=== PATIENT | female | born 1940 ===

== ENCOUNTER 2023-04-30 17:18 | Emergency (ER) | payer OTHER, MEDICAID, SELFPAY ==
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
--- NOTE | ~2023-04-30 | CT_ITS ---
EXAMINATION: CT CERVICAL SPINE WITHOUT CONTRAST CLINICAL INFORMATION: Neck pain COMPARISON: None available. TECHNIQUE: CT scan of cervical spine with reconstruction imaging performed at the acquisition workstation. This CT examination was performed using dose optimization techniques as appropriate, variously including the following: *Automated exposure control *Adjustment of mA and/or kV according to patient size (this includes techniques or standardized protocols for targeted exams where dose is matched to indication/reason for exam; i.e. extremities or head) *Use of iterative reconstruction technique DLP: 378 mGy-cm FINDINGS: There is advanced multilevel spondylosis of the cervical spine. There is multilevel degenerative disc changes with disc space narrowing moderate to severe at the C6-C7 level with disc space narrowing endplate osteophytes and vacuum disc phenomenon. Bilateral multilevel severe facet arthrosis also present involving almost all levels. These degenerative changes result in mild grade 1 anterolisthesis of C3 on C4 and C4 on C5. There is no fracture. There is no bone lesion. The surrounding soft tissues are unremarkable. CT/CT cervical spine wo IV con IMPRESSION: Advanced cervical spondylosis. No acute abnormality Fleischner guidelines were followed.
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
[2023-04-30 17:52] VITALS: BP 146/79; BP 150/108; PULSE 81; PULSE 99; RESP 14; TEMP 36.7; O2SAT 95; O2SAT 97; BMI 32.8
[2023-04-30 18:41] LABS: MANUAL DIFF FLAG NO
[2023-04-30 18:49] LABS: Basophils Percent Auto 0.4 % (0-2); Eosinophils Absolute Auto 0.3 X10*3/uL (0.0-0.4); Eosinophils Percent Auto 4.3 % (0-4); Hemoglobin 14.1 g/dl (12.0-16.0); Imm Gran Abs Auto 0.02 X10*3/uL (0.00-0.03); Imm Gran Pct Auto 0.3 % (0.0-0.4); Lymphocytes Absolute Auto 1.4 X10*3/uL (1.2-4.9); Lymphocytes Percent Auto 20.2 % (20-40); Mean Corpuscular HGB Conc 34.4 g/dl (31.0-35.0); Mean Corpuscular Hemoglobin 31.7 pg (27.0-33.0); Mean Corpuscular Volume 92.1 fL (80.0-98.0); Mean Platelet Volume 11.1 fL (9.4-12.3); Monocytes Absolute Auto 0.5 X10*3/uL (0.1-1.2); Monocytes Percent Auto 6.9 % (2-11); Neutrophils Absolute Auto 4.6 x10*3/uL (2.0-8.3); Neutrophils Percent Auto 67.9 % (45-73); Platelet Count 240 X10*3/uL (160-400); Red Blood Count 4.45 X10*6/uL (4.20-5.50); Red Cell Distribution Width 12.8 % (11.0-16.0); White Blood Count 6.8 X10*3/uL (4.8-10.8)
[2023-04-30] MEDS: Acetaminophen 325 MG TABLET 650 MG PO (18:52)
[2023-04-30 19:01] LABS: Prothrombin Time 11.1 SEC (10.0-13.1)
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
[2023-04-30 19:39] LABS: Alanine Aminotransferase 11 U/L (0-31); Albumin Level 3.9 g/dL (3.5-5.0); Alkaline Phosphatase 66 U/L (39-117); Anion Gap 14 (12-20); Aspartate Amino Transferase 14 U/L (5-31); Bilirubin Total 0.5 mg/dL (0.0-1.0); Blood Urea Nitrogen 18 mg/dL (9-16); Carbon Dioxide 24 mmol/L (22-29); Chloride 108 mmol/L (96-108); Creatinine Clr Calc Pharmacy 64.3; Estimated Glomerular Filt Rate > 60; Glucose Random 88 mg/dL (60-115); Sodium 142 mmol/L (135-145); Total Protein 7.3 g/dL (6.5-8.0)
[2023-04-30] MEDS: iohexoL 350 MG/ML 100 ML INFUS..BTL 85 ML IV (20:16)
[2023-04-30] MEDS: Morphine Sulfate Immed Release 15 MG TABLET PO (22:28)
[2023-04-30 22:51] VITALS: BP 133/81; PULSE 76; RESP 12; TEMP 36.7; O2SAT 96
== END 2023-04-30 22:53 | disposition home or self-care (01) ==
PROVIDERS: Physician Assistant; Emergency Provider Internal Medicine; PCP Nurse Practitioner Family
DX: S13.4XXA Sprain of ligaments of cervical spine, initial encounter (principal); S06.0X0A Concussion without loss of consciousness, initial encounter; S40.812A Abrasion of left upper arm, initial encounter; S40.811A Abrasion of right upper arm, initial encounter; R10.2 Pelvic and perineal pain; R51.9 Headache, unspecified; M54.6 Pain in thoracic spine; V43.52XA Car driver injured in collision with other type car in traffic accident, initial encounter; Y93.9 Activity, unspecified; Y92.410 Unspecified street and highway as the place of occurrence of the external cause; Y99.9 Unspecified external cause status; Z79.899 Other long term (current) drug therapy
CPT/HCPCS: 36415; 70450; 71260; 72125; 74177; 80053; 83735; 85025; 85610; 99284; 99285; Q9967